=== PATIENT | female | born 1975 | race Caucasian/White ===

== ENCOUNTER 2023-06-22 08:39 | Day surgery (SDC) | payer BC ==
[~2023-06-22] VITALS: Ht 170.2 cm; Wt 98.9 kg
[~2023-06-22 08:39] MED LIST: DexAMETHasone SOD PHOS 10MG/1ML VIAL INJ ONE; EREN140I SC; GLYCOPYRROLATE 0.2 MG/ML 1ML VIAL ONE; HYDROmorphone HCL 2 MG/ML VL/or syr ONE; KETOROLAC TROMETH 60MG/2ML VIAL ONE; LIDOCAINE 2% (LOCAL ANESTH.) PF 5ml SDV ONE; MIDAZOLAM HCL 2MG/2ML 2ml VIAL (1mg/ml) ONE; NARA2.5T2 PO; NORT25CA PO; ONDANSETRON HCL 4 MG/2 ML VIAL ONE; PROPOFOL 10 MG/ML 20 ML IV ONE; RIME75TA PO; ROCURONIUM 10MG/ML 10ML VIAL IV ONE; ePHEDrine SULFATE 50 MG/ML AMP ONE; fentaNYL CITRATE 100 MCG/2 ML VL ONE
[2023-06-22] MEDS ORDERED: KETAMINE 50mg/ML 10ml Vial (500mg/10ml) IV ONE (08:40)
[2023-06-22] MEDS ORDERED: BUPIVACAINE 0.25% INJ 50ML VIAL ONE (09:52)
[2023-06-22] MEDS ORDERED: CONJ ESTROGENS 0.625MG/GM VAG CRM 30GM PV ONE (09:52)
[2023-06-22] MEDS ORDERED: LIDOCAINE W/ EPINEPHRINE 2% INJ 20ML VIAL ONE (09:52)
[2023-06-22] MEDS ORDERED: ceFAZolin 1GM VL ONE (10:04)
[2023-06-22] MEDS ORDERED: ceFAZolin 1GM/50ML 100 ML IV ONE (10:09)
[2023-06-22] MEDS ORDERED: KETOROLAC TROMETH 30 MG/ML 1ML VIAL ONE (10:16)
[2023-06-22] MEDS ORDERED: ONDANSETRON HCL 4 MG/2 ML VIAL ONE (10:16)
[2023-06-22] MEDS ORDERED: LIDOCAINE 2% (LOCAL ANESTH.) PF 5ml SDV ONE (10:16)
[2023-06-22] MEDS ORDERED: DexAMETHasone SOD PHOS 10MG/1ML VIAL INJ ONE (10:16)
[2023-06-22] MEDS ORDERED: PROPOFOL 10 MG/ML 20 ML IV ONE (10:16)
[2023-06-22] MEDS ORDERED: GLYCOPYRROLATE 0.2 MG/ML 1ML VIAL ONE (10:16)
[2023-06-22] MEDS ORDERED: fentaNYL CITRATE 100 MCG/2 ML VL ONE (11:14)
[2023-06-22] MEDS ORDERED: GELATIN 1 SPONGE SIZE 100 TOP ONE (11:40)
[2023-06-22 12:21] VITALS: PULSE 100; RESP 9; TEMP 97.2; O2SAT 100
[2023-06-22] MEDS ORDERED: ONDANSETRON HCL 4 MG/2 ML VIAL IV PRN ×2 (12:30→12:45)
[2023-06-22] MEDS ORDERED: FLUMAZENIL 0.1 MG/ML INJ 10ML MDV IV PRN (12:45)
[2023-06-22] MEDS ORDERED: hydrALAZINE HCL 20 MG/ML VL IV PRN (12:45)
[2023-06-22] MEDS ORDERED: ePHEDrine SULFATE 50 MG/ML AMP IV PRN (12:45)
[2023-06-22] MEDS ORDERED: fentaNYL CITRATE 100 MCG/2 ML VL IV PRN (12:45)
[2023-06-22] MEDS ORDERED: LABETALOL HCL 5 MG/ML 4ML SYRINGE IV PRN (12:45)
[2023-06-22] MEDS ORDERED: NALOXONE HCL 0.4 MG/ML VIAL IV PRN (12:45)
[2023-06-22] MEDS ORDERED: oxyCODONE ER 10 MG TAB PO ONE (12:45)
[2023-06-22] MEDS: HYDROmorphone HCL 2 MG/ML VL/or syr IV PRN ×3 (12:49→13:10)
[2023-06-22 14:20] VITALS: BP 122/62; PULSE 88; RESP 12; O2SAT 99
== END 2023-06-22 14:23 | disposition home or self-care (01) ==
LOC: SUR 08:39
PROVIDERS: ATTEND Obstetrics & Gynecology
DX: N81.6 Rectocele (principal); Z91.048 Other nonmedicinal substance allergy status; Z98.890 Other specified postprocedural states
CPT/HCPCS: 57250; 86850; 86900; 86901; 88305; C2631; J0690; J1100; J1170; J1885; J2001; J2405; J2704; J3010; J3490; Q4140; J2250